=== PATIENT | female | born 1960 ===

== ENCOUNTER 2022-03-12 15:12 | Inpatient (IN) ==
[2022-03-12] MEDS ORDERED: Lactated Ringers 1000 ml BAG 1,000 ML IV ONE (15:20)
[2022-03-12] MEDS ORDERED: LORazepam 2 mg VIAL 1 ml ONE ×2 (15:32→18:26)
[2022-03-12] MEDS ORDERED: Lorazepam PYXIS KEY PRN (15:34)
[2022-03-12] MEDS ORDERED: LORazepam 2 mg VIAL 1 ml IV PUSH ONE (15:34)
[2022-03-12 16:07] LABS: ABS Basophils 0.1 10^3/ul (0-0.2); ABS Lymphocytes 0.9 10^3/ul (1.0-4.8); ABS Monocytes 0.6 10^3/ul (0-0.8); ABS Neutrophils 6.1 10^3/ul (1.5-7.7); Hematocrit 38 % (35-47); Hemoglobin 11.9 g/dL (12.0-16.0); Lymphocyte % 11.8 %; Mean Corpuscular HGB Conc 31 g/dL (31-36); Mean Corpuscular Hemoglobin 26 pg (27-31); Mean Corpuscular Volume 84 fL (80-97); Mean Platelet Volume 8.9 fL (7.4-10.4); Platelet Count 226 10^3/uL (150-450); Red Blood Count 4.55 10^6 /uL (3.70-4.87); Red Cell Distribution Width 14 % (10-15); White Blood Count 7.6 10^3/uL (3.5-10.8)
[2022-03-12 16:27] LABS: INR 1.15 (0.89-1.11)
[2022-03-12 16:30] LABS: ALT 38 U/L (7-52); AST 51 U/L (13-39); Acetaminophen < 15 mcg/mL; Albumin/Globulin Ratio 0.8 (1-3); Alcohol, S < 13 mg/dL (<13); Alkaline Phosphatase 60 U/L (35-149); Anion Gap 17 mmol/L (2-11); Blood Urea Nitrogen 7 mg/dL (6-24); CO2 Carbon Dioxide 23 mmol/L (22-32); Calcium 7.9 mg/dL (8.6-10.3); Chloride 104 mmol/L (101-111); Globulin 4.8 g/dL (2-4); Glucose 196 mg/dL (70-100); Potassium 2.8 mmol/L (3.5-5.0); Sodium 144 mmol/L (135-145); Total Protein 8.8 g/dL (6.4-8.9); eGFR CKD-EPI 67.3 (>60)
[2022-03-12] MEDS ORDERED: levETIRAcetam IV 1,500 MG in NS 0.9% 100 ml BAG 100 ML IVPB ONE (16:44)
[2022-03-12] MEDS ORDERED: KCL 20 MEQ/100 ML IVPREMIX 20 MEQ/100 ML BAG IV ONE (16:50)
[2022-03-12] MEDS ORDERED: Iodixanol (CONTRAST) 320 MG/ML 100 ML SDV IV ONE (16:55)
[2022-03-12] MEDS ORDERED: Dextrose 50% Syringe 50 ml 25 GM/50 ML SYRINGE IV PUSH PRN (18:16)
[2022-03-12] MEDS: Enoxaparin 40 MG/0.4 ML SYR SUBCUT SCH (18:18)
[2022-03-12 18:43] LABS: Creatine Kinase 742 U/L (10-223); Magnesium 1.6 mg/dL (1.9-2.7)
[2022-03-12] MEDS ORDERED: Magnesium Sulf 4 GM/100 ML IV 4,000 MG/100 ML BAG IVPB ONE (18:58)
[2022-03-12] MEDS ORDERED: Lactated Ringers 1000 ml BAG 1,000 ML IV SCH (19:00)
[2022-03-12 19:08] LABS: Vitamin B12 335 pg/mL (180-914)
[2022-03-12 20:42] LABS: % Iron Saturation 10 % (15-55); Iron 35 ug/dL (50-212); Total Iron Binding Capacity 365 mcg/dL (250-450); Transferrin 261 mg/dL (203-362); Unsaturated Iron Binding 330 ug/dL
[2022-03-12 21:16] LABS: Ferritin 266.2 ng/mL (11-307)
[2022-03-13] MEDS ORDERED: levETIRAcetam 1000MG IVPREMIX 1,000 MG/100 ML BAG IVPB SCH
[2022-03-13] MEDS: KCL 20 MEQ/100 ML IVPREMIX 20 MEQ/100 ML BAG IV SCH ×2 (00:51→04:15)
[2022-03-13 01:54] LABS: Urine Benzodiazepine Screen None Detected (None Detect); Urine Cannabinoids Screen None Detected (None Detect); Urine Opiates Screen None Detected (None Detect)
[2022-03-13 01:56] LABS: Urine Appearance Clear; Urine Bacteria 1+ (Absent); Urine Bilirubin Negative (Negative); Urine Blood 2+ (Negative); Urine Color Yellow; Urine Glucose 3+(>=500 mg/dL) (Negative); Urine Ketones 1+ (Negative); Urine Nitrite Negative (Negative); Urine Protein 1+(30 mg/dL) (Negative); Urine Red Blood Cell Absent (Absent); Urine Specific Gravity 1.017 (1.002-1.030); Urine Squamous Epithelial Cell Present (Absent); Urine Urobilinogen Negative (Negative); Urine White Blood Cell Trace(0-5/hpf) (Absent); Urine Yeast Present (Absent)
[2022-03-13 03:23] LABS: ABS Basophils 0.1 10^3/ul (0-0.2); ABS Neutrophils 4.3 10^3/ul (1.5-7.7); Eosinophil % 0.1 %; Hematocrit 35 % (35-47); Lymphocyte % 26.9 %; Mean Corpuscular HGB Conc 31 g/dL (31-36); Mean Corpuscular Hemoglobin 26 pg (27-31); Mean Corpuscular Volume 83 fL (80-97); Mean Platelet Volume 8.4 fL (7.4-10.4); Platelet Count 252 10^3/uL (150-450); Red Cell Distribution Width 15 % (10-15); White Blood Count 7.4 10^3/uL (3.5-10.8)
[2022-03-13 03:42] LABS: Albumin 3.8 g/dL (3.2-5.2); Albumin/Globulin Ratio 0.9 (1-3); Calcium 7.7 mg/dL (8.6-10.3); Globulin 4.4 g/dL (2-4); Magnesium 2.7 mg/dL (1.9-2.7); Potassium 2.9 mmol/L (3.5-5.0); Total Bilirubin 0.5 mg/dL (0.2-1.0); Total Protein 8.2 g/dL (6.4-8.9); eGFR CKD-EPI 82.7 (>60)
[2022-03-13] MEDS: Isosorbide Mononit ER 30mg TAB PO SCH (08:38)
[2022-03-13] MEDS: Aspirin EC 81 mg TAB.EC (enteric coated) PO SCH (08:39)
[2022-03-13] MEDS ORDERED: Lorazepam PYXIS KEY PRN (08:53)
[2022-03-13] MEDS ORDERED: LORazepam 2 mg VIAL 1 ml IV PUSH ONE (08:53)
[2022-03-13] MEDS ORDERED: Potassium Chlor 20 meq TAB.ER PO ONE ×2 (10:02→17:38)
[2022-03-13 11:47] LABS: Calcium (PTH Intact) 7.5 mg/dL (8.6-10.3)
[2022-03-13 17:30] LABS: Calcium 7.5 mg/dL (8.6-10.3); Potassium 3.4 mmol/L (3.5-5.0); eGFR CKD-EPI 71.8 (>60)
[2022-03-13] MEDS: Enoxaparin 40 MG/0.4 ML SYR SUBCUT SCH ×2 (18:04→20:00)
[2022-03-13] MEDS ORDERED: Gadoteridol (CONTRAST) 279.3 MG/ML 10 ML IV ONE (20:08)
[2022-03-14 06:10] LABS: Anion Gap 11 mmol/L (2-11); Blood Urea Nitrogen 6 mg/dL (6-24); CO2 Carbon Dioxide 27 mmol/L (22-32); Calcium 7.3 mg/dL (8.6-10.3); Chloride 104 mmol/L (101-111); Glucose 114 mg/dL (70-100); Magnesium 2.2 mg/dL (1.9-2.7); Potassium 3.3 mmol/L (3.5-5.0); Sodium 142 mmol/L (135-145); eGFR CKD-EPI 80.3 (>60)
[2022-03-14] MEDS ORDERED: Potassium Chlor 20 meq TAB.ER PO ONE ×2 (06:48→10:00)
[2022-03-14] MEDS: Isosorbide Mononit ER 30mg TAB PO SCH (09:22)
[2022-03-14] MEDS: Aspirin EC 81 mg TAB.EC (enteric coated) PO SCH (09:23)
[2022-03-14 11:10] LABS: Vitamin D Total 25(OH) < 7.0 ng/mL (20-50)
[2022-03-14 12:41] VITALS: BP 124/66
== END 2022-03-14 17:10 | disposition home or self-care (01) | DRG 53 ==
LOC: ED 15:12 → EDHOLD 15:12 → SUATTDRO 17:19 → MEDTELE 03-13 16:19
PROVIDERS: ADMIT Internal Medicine; ATTEND Internal Medicine